=== PATIENT | male | born 1955 | race African-American/Black ===

== ENCOUNTER 2017-05-29 11:45 | Emergency (ER) | payer MEDICARE, MEDICAID ==
[~2017-05-29] VITALS: Ht 170.2 cm; Wt 129.0 kg
[~2017-05-29 11:45] MED LIST: DIOVAN
[2017-05-29] MEDS ORDERED: SODIUM CHLORIDE 0.9% 1,000 ML IV ONE (12:46)
[2017-05-29 13:21] LABS: BASOPHILS % 0.9 % (0.0-2.0); EOSINOPHILS % 0.9 % (0.0-5.0); HEMATOCRIT. 34.4 % (42.0-52.0); HEMOGLOBIN. 11.5 g/dL (14.0-18.0); LYMPHOCYTES % 16.7 % (20.0-50.0); MEAN CORPUSCULAR HEMOGLOBIN 30.1 pg (28.0-32.0); MEAN CORPUSCULAR VOLUME 90.6 fL (80.0-94.0); MEAN PLATELET VOLUME 7.6 fl (7.4-10.4); MONOCYTES % 9.8 % (2.0-8.0); NEUTROPHILS % 71.7 % (40.0-76.0); PLATELET 349 x1000/uL (130-400); RED CELL DISTRIBUTION WIDTH 15.3 % (11.6-14.6)
[2017-05-29 13:27] LABS: CHLORIDE 105 mEq/L (98-107)
[2017-05-29 13:29] LABS: PROTHROMBIN TIME 10.7 sec
[2017-05-29 13:34] LABS: CARBON DIOXIDE 25 mEq/L (21-32)
[2017-05-29 15:39] VITALS: BP 138/73
[2017-05-29] MEDS ORDERED: ONDANSETRON HCL 4MG/2ML VIAL IV ONE (17:30)
[2017-05-29] MEDS ORDERED: MORPHINE SULFATE 4 MG/ML CPJ (NOT FOR IM USE) IV ONE (17:30)
[2017-05-29] MEDS ORDERED: ACETAMINOPHEN 325MG TABLET PO ONE (17:30)
== END 2017-05-29 20:32 | disposition left against medical advice (07) ==
LOC: ER 12:38 → ENRESERV 20:19 → ER 20:32 → CANBEDREQ 05-30 00:20
DX: M25.461 Effusion, right knee (principal); E11.9 Type 2 diabetes mellitus without complications; I10 Essential (primary) hypertension; F17.200 Nicotine dependence, unspecified, uncomplicated
CPT/HCPCS: 20610; 36415; 73562; 80053; 83605; 85025; 85610; 87040; 87070; 87205; 89050; 89060; 93005; 96360; 96361; 99285; J7030

== ENCOUNTER 2020-09-10 17:58 | Emergency (ER) | payer MEDICARE, MEDICAID ==
[~2020-09-10] VITALS: Ht 177.8 cm; Wt 83.0 kg
[~2020-09-10 17:58] MED LIST changes: +AMLO10TA80 PO; +ASPI-1497 PO; +ATEN100T PO; +CALC0.253 PO; +CLONIDINE; +D-ME473S8 PO; +DOCU100T8 PO; +FURO40TA5 PO; +ROSU20TA2 PO; +SITA50TA3 PO
[2020-09-10 20:51] LABS: BASOPHILS % 0.7 % (0.0-2.0); EOSINOPHILS % 1.3 % (0.0-5.0); HEMATOCRIT. 35.9 % (42.0-52.0); LYMPHOCYTES % 28.7 % (20.0-50.0); MEAN CORPUSCULAR HEMOGLOBIN 33.2 pg (28.0-32.0); MEAN CORPUSCULAR VOLUME 99.5 fL (80.0-94.0); MEAN PLATELET VOLUME 7.1 fl (7.4-10.4); MONOCYTES % 8.9 % (2.0-8.0); NEUTROPHILS % 60.4 % (40.0-76.0); PLATELET 248 x1000/uL (130-400); RED BLOOD CELL COUNT 3.61 mill/uL (4.7-6.1); RED CELL DISTRIBUTION WIDTH 19.5 % (11.6-14.6)
[2020-09-10 20:56] LABS: CHLORIDE 92 mEq/L (98-107)
[2020-09-10 20:57] LABS: PROTHROMBIN TIME 10.9 sec (9.6-11.0)
[2020-09-10 22:15] VITALS: BP 121/58
== END 2020-09-10 22:15 | disposition home or self-care (01) ==
LOC: ER 17:58
DX: T82.838A Hemorrhage due to vascular prosthetic devices, implants and grafts, initial encounter (principal); E11.22 Type 2 diabetes mellitus with diabetic chronic kidney disease; I12.0 Hypertensive chronic kidney disease with stage 5 chronic kidney disease or end stage renal disease; N18.6 End stage renal disease; E78.00 Pure hypercholesterolemia, unspecified; Z99.2 Dependence on renal dialysis; Z79.82 Long term (current) use of aspirin; Y84.1 Kidney dialysis as the cause of abnormal reaction of the patient, or of later complication, without mention of misadventure at the time of the procedure; Y92.018 Other place in single-family (private) house as the place of occurrence of the external cause
CPT/HCPCS: 12002; 36415; 80053; 85025; 93005; 99283

== ENCOUNTER 2020-09-17 09:17 | Inpatient (IN) | payer MEDICARE, MEDICAID ==
[~2020-09-17] VITALS: Ht 180.3 cm; Wt 90.0 kg
[2020-09-17 09:56] LABS: PROTHROMBIN TIME 10.8 sec (9.6-11.0)
[2020-09-17 09:57] LABS: CHLORIDE 97 mEq/L (98-107)
[2020-09-17 10:21] LABS: BASOPHILS % 0.7 % (0.0-2.0); EOSINOPHILS % 1.3 % (0.0-5.0); HEMATOCRIT. 32.5 % (42.0-52.0); MEAN CORPUSCULAR HEMOGLOBIN 33.6 pg (28.0-32.0); MEAN CORPUSCULAR VOLUME 99.4 fL (80.0-94.0); MEAN PLATELET VOLUME 7.1 fl (7.4-10.4); PLATELET 281 x1000/uL (130-400); RED BLOOD CELL COUNT 3.27 mill/uL (4.7-6.1); RED CELL DISTRIBUTION WIDTH 20.7 % (11.6-14.6)
[2020-09-17] MEDS ORDERED: SODIUM CHLORIDE 0.9% IV ONE (12:15)
[2020-09-17] MEDS ORDERED: DESMOPRESSIN ACETATE IV ONE (12:15)
[2020-09-18 00:06] LABS: CLARITY URINE CLEAR (CLEAR); COLOR URINE YELLOW (YELLOW); KETONES URINE NEGATIVE (NEGATIVE); LEUKOCYTE ESTERASE URINE NEGATIVE (NEGATIVE); NITRITE URINE NEGATIVE (NEGATIVE); OCCULT BLOOD URINE 1+ (NEGATIVE); PROTEIN URINE 2+ (NEGATIVE); UROBILINOGEN URINE 0.2 E.U./dL (0.2-1.0)
[2020-09-18 04:00] VITALS: BP 137/73
[2020-09-18 08:00] VITALS: BP 133/65
[2020-09-18] MEDS ORDERED: CLONIDINE 0.1MG TABLET PO PRN (09:30)
[2020-09-18] MEDS ORDERED: DEXTROSE 50% WATER 50ML SYRINGE IV PRN (09:30)
[2020-09-18] MEDS ORDERED: ACETAMINOPHEN 325MG TABLET PO PRN (09:30)
[2020-09-18] MEDS ORDERED: DEXT 5%/0.9% NACL 1,000 ML IV SCH (09:30)
[2020-09-18] MEDS ORDERED: ONDANSETRON HCL 4MG/2ML INJ IV PRN (09:30)
[2020-09-18] MEDS ORDERED: FUROSEMIDE 40MG TABLET PO SCH (10:00)
[2020-09-18] MEDS ORDERED: CALCITRIOL 0.25MCG CAPSULE PO SCH (10:00)
[2020-09-18] MEDS ORDERED: AMLODIPINE 10MG TABLET PO SCH (10:00)
[2020-09-18] MEDS ORDERED: ATENOLOL 50 MG TABLET PO SCH (10:00)
[2020-09-18 10:39] VITALS: BP 133/65
[2020-09-18 11:42] LABS: BASOPHILS % 0.4 % (0.0-2.0); EOSINOPHILS % 1.1 % (0.0-5.0); HEMATOCRIT. 29.5 % (42.0-52.0); HEMOGLOBIN. 9.9 g/dL (14.0-18.0); MEAN CORPUSCULAR HEMOGLOBIN 33.3 pg (28.0-32.0); MEAN CORPUSCULAR VOLUME 99.4 fL (80.0-94.0); MEAN PLATELET VOLUME 7.2 fl (7.4-10.4); MONOCYTES % 7.4 % (2.0-8.0); NEUTROPHILS % 68.1 % (40.0-76.0); PLATELET 271 x1000/uL (130-400); RED BLOOD CELL COUNT 2.97 mill/uL (4.7-6.1); RED CELL DISTRIBUTION WIDTH 20.3 % (11.6-14.6)
[2020-09-18] MEDS: BLOOD SUGAR DIAGNOSTIC STRIP TEST SCH ×3 (12:20→21:00)
[2020-09-18] MEDS: SEVELAMER CARBONATE 800 MG TABLET PO SCH ×2 (12:50→18:19)
[2020-09-18] MEDS: INSULIN LISPRO 100 UNITS/ML SUBCUT SCH ×3 (12:50→21:50)
[2020-09-18] MEDS: CALCIUM ACETATE 667MG CAPSULE PO SCH ×2 (12:50→18:24)
[2020-09-18] MEDS ORDERED: FENTANYL CITRATE/PF 50MCG/ML 2ML VIAL ONE (14:03)
[2020-09-18] MEDS ORDERED: CEFAZOLIN 1000MG PREMIX 0 ML IV ONE (14:03)
[2020-09-18] MEDS ORDERED: SODIUM BICARBONATE 4% (2.4MEQ) 5ML VIAL IV ONE (14:23)
[2020-09-18] MEDS ORDERED: LIDOCAINE HCL 1% 20ML VIAL (Pyxis) INJ ONE (14:23)
[2020-09-18 20:00] VITALS: BP 138/70
[2020-09-19] VITALS: BP 139/68
[2020-09-19 04:00] VITALS: BP 124/74
[2020-09-19] MEDS ORDERED: LIDOCAINE HCL 1% 20ML VIAL (Pyxis) INJ ONE ×2 (07:03→09:59)
[2020-09-19] MEDS ORDERED: BACITRACIN 15GM TUBE TOP ONE (07:03)
[2020-09-19] MEDS ORDERED: SODIUM CHLORIDE 0.9% 250 ML IV ONE (07:04)
[2020-09-19] MEDS ORDERED: SODIUM CHLORIDE 0.9% 1,000 ML ONE (07:04)
[2020-09-19] MEDS ORDERED: BUPIVACAINE HCL/PF 0.5% (5MG/ML) 10ML ONE (07:04)
[2020-09-19] MEDS ORDERED: SODIUM CHLORIDE 0.9% INJ 10ML FLUSH IVF ONE (07:04)
[2020-09-19] MEDS ORDERED: HEPARIN SODIUM 1,000 UNIT/1ML VIAL IV ONE (07:04)
[2020-09-19] MEDS ORDERED: BACITRACIN 50,000 UNITS/VIAL ONE (07:04)
[2020-09-19] MEDS ORDERED: THROMBIN (BOVINE) 5000 UNITS/VIAL TOP ONE (07:05)
[2020-09-19] MEDS: BLOOD SUGAR DIAGNOSTIC STRIP TEST SCH ×2 (07:24→12:20)
[2020-09-19 08:00] VITALS: BP 135/117
[2020-09-19] MEDS ORDERED: PROPOFOL 200MG/20ML VIAL IV ONE (08:57)
[2020-09-19] MEDS ORDERED: MORPHINE SULFATE 4 MG/ML CPJ (NOT FOR IM USE) IV PRN (09:00)
[2020-09-19] MEDS ORDERED: PHENYLEPHRINE HCL 10 MG/ML 1ML (IV VIAL) IV ONE (09:13)
[2020-09-19] MEDS ORDERED: FENTANYL CITRATE/PF 50MCG/ML 2ML VIAL ONE ×2 (09:14→10:15)
[2020-09-19] MEDS ORDERED: CEFAZOLIN SODIUM 1000MG/VIAL ONE (09:59)
[2020-09-19] MEDS ORDERED: LIDOCAINE HCL 2% JELLY 5ML ONE (09:59)
[2020-09-19] MEDS ORDERED: ONDANSETRON HCL 4MG/2ML INJ ONE (10:00)
[2020-09-19] MEDS ORDERED: METOCLOPRAMIDE HCL 10MG/2ML VIAL ONE (10:00)
[2020-09-19 12:00] VITALS: BP 139/79
== END 2020-09-19 17:10 | disposition left against medical advice (07) | DRG 264 ==
LOC: ER 09:17 → ENRESERV 09-18 04:17 → ER 09-18 05:31 → 6EST 09-18 06:01
PROVIDERS: ADMIT Internal Medicine; ATTEND Internal Medicine
PROC: 02HV33Z Insertion of Infusion Device into Superior Vena Cava, Percutaneous Approach (ICD-10-PCS; 2020-09-18)
PROC: B548ZZA Ultrasonography of Superior Vena Cava, Guidance (ICD-10-PCS; 2020-09-18)
PROC: 5A1D70Z Performance of Urinary Filtration, Intermittent, Less than 6 Hours Per Day (ICD-10-PCS; 2020-09-18)
PROC: 03180JD Bypass Left Brachial Artery to Upper Arm Vein with Synthetic Substitute, Open Approach (ICD-10-PCS; principal; 2020-09-19)
DX: T82.838A Hemorrhage due to vascular prosthetic devices, implants and grafts, initial encounter (principal); N18.6 End stage renal disease; E87.1 Hypo-osmolality and hyponatremia; I13.2 Hypertensive heart and chronic kidney disease with heart failure and with stage 5 chronic kidney disease, or end stage renal disease; Y82.8 Other medical devices associated with adverse incidents; D50.0 Iron deficiency anemia secondary to blood loss (chronic); E11.22 Type 2 diabetes mellitus with diabetic chronic kidney disease; E11.319 Type 2 diabetes mellitus with unspecified diabetic retinopathy without macular edema; E11.40 Type 2 diabetes mellitus with diabetic neuropathy, unspecified; E11.621 Type 2 diabetes mellitus with foot ulcer; E78.00 Pure hypercholesterolemia, unspecified; E78.5 Hyperlipidemia, unspecified; L97.509 Non-pressure chronic ulcer of other part of unspecified foot with unspecified severity; G89.29 Other chronic pain; M19.90 Unspecified osteoarthritis, unspecified site; Z53.29 Procedure and treatment not carried out because of patient's decision for other reasons; I50.9 Heart failure, unspecified; Z99.2 Dependence on renal dialysis; Z82.49 Family history of ischemic heart disease and other diseases of the circulatory system; Y92.89 Other specified places as the place of occurrence of the external cause; E66.9 Obesity, unspecified; Z68.27 Body mass index [BMI] 27.0-27.9, adult
CPT/HCPCS: 36415; 76937; 77001; 80048; 80053; 81003; 82962; 85025; 86850; 86900; 87426; 99285; C1752; C1768; C1769; J0690; J1642; J1644; J1815; J2370; J2405; J2597; J2704; J2765; J3010; J3490; J7030; J7042; J7050

== ENCOUNTER 2020-09-24 09:42 | Emergency (ER) | payer MEDICARE, MEDICAID ==
[~2020-09-24] VITALS: Ht 167.6 cm; Wt 127.0 kg
[2020-09-24 11:31] LABS: BASOPHILS % 0.4 % (0.0-2.0); CHLORIDE 98 mEq/L (98-107); EOSINOPHILS % 1.6 % (0.0-5.0); HEMATOCRIT. 26.7 % (42.0-52.0); LYMPHOCYTES % 19.8 % (20.0-50.0); MEAN CORPUSCULAR HEMOGLOBIN 33.8 pg (28.0-32.0); MEAN CORPUSCULAR VOLUME 99.6 fL (80.0-94.0); MEAN PLATELET VOLUME 7.5 fl (7.4-10.4); MONOCYTES % 9.9 % (2.0-8.0); NEUTROPHILS % 68.3 % (40.0-76.0); PLATELET 307 x1000/uL (130-400); RED BLOOD CELL COUNT 2.68 mill/uL (4.7-6.1); RED CELL DISTRIBUTION WIDTH 20.8 % (11.6-14.6)
[2020-09-24 13:11] LABS: PARTIAL THROMBOPLASTIN TIME 28.4 sec (23.4-31.0); PROTHROMBIN TIME 10.9 sec (9.6-11.0)
[2020-09-24] MEDS ORDERED: LIDOCAINE HCL 1% 20ML VIAL (Pyxis) INJ ONE (14:24)
[2020-09-24] MEDS ORDERED: SODIUM BICARBONATE 4% (2.4MEQ) 5ML VIAL IV ONE (14:24)
[2020-09-24 14:45] VITALS: BP 132/74
== END 2020-09-24 15:46 | disposition home or self-care (01) ==
LOC: ER 09:51
DX: T82.898A Other specified complication of vascular prosthetic devices, implants and grafts, initial encounter (principal); R60.0 Localized edema; E78.00 Pure hypercholesterolemia, unspecified; E11.22 Type 2 diabetes mellitus with diabetic chronic kidney disease; I12.0 Hypertensive chronic kidney disease with stage 5 chronic kidney disease or end stage renal disease; N18.6 End stage renal disease; Z99.2 Dependence on renal dialysis; Y84.1 Kidney dialysis as the cause of abnormal reaction of the patient, or of later complication, without mention of misadventure at the time of the procedure; Y92.018 Other place in single-family (private) house as the place of occurrence of the external cause
CPT/HCPCS: 36415; 36556; 71045; 76937; 77001; 80053; 85025; 85610; 85730; 87426; 93005; 93971; 99285; C1752; J1642; J3490